=== PATIENT | male | born 1975 | race Caucasian/White ===

== ENCOUNTER 2020-05-11 06:43 | Outpatient (CLI) | payer BC, SELFPAY ==
[2020-05-11 07:35] LABS: Hematocrit 47.1 % (42.0-52.0); Hemoglobin 15.7 g/dL (14.0-18.0); Mean Corpuscular HGB Conc 33.3 g/dl (32-36); Mean Corpuscular Hemoglobin 28.6 pg (26-34); Mean Corpuscular Volume 85.8 fl (80-100); Mean Platelet Volume 11.6 fl (7.4-10.4); Platelet Count Result 231 k/mm3 (150-375); Red Blood Count 5.49 M/mm3 (4.6-6.20); Red Cell Distribution Width 12.6 % (11.5-14.5); White Blood Count 7.8 K/mm3 (4.5-10.0)
[2020-05-11 07:46] LABS: Alanine Aminotransferase 38 U/L (4-50); Albumin Level 4.3 g/dL (3.5-5.1); Alkaline Phosphatase 53 U/L (38-126); Aspartate Amino Transferase 31 U/L (17-59); Bilirubin,Total 0.7 mg/dL (0.2-1.3); Blood Urea Nitrogen 9 mg/dL (9-20); Calcium 9.4 mg/dL (8.4-10.2); Carbon Dioxide 32 mmol/L (22-30); Chloride 101 mmol/L (98-107); Cholesterol 236 mg/dL (0-200); Estimated Glomerular Filt Rate > 60; Glucose 134 mg/dL (75-110); HDL Direct 47 mg/dL; Potassium 4.7 mmol/L (3.4-5.0); Sodium 137 mmol/L (137-145); Triglycerides 147 mg/dL (<150)
[2020-05-11 07:57] LABS: LDL Cholesterol Direct 160 mg/dL
[2020-05-11 08:16] LABS: Prostate Specific Antigen 0.8 ng/mL (< OR = 4.0)
[2020-05-11 08:28] LABS: Hemoglobin A1C 6.5 % (<5.7)
[2020-05-11 09:43] LABS: Folic Acid 10.7 ng/mL (2.76->20)
== END 2020-05-11 06:44 | disposition home or self-care (01) ==
PROVIDERS: PCP Internal Medicine; Visit Provider Internal Medicine
DX: Z00.00 Encounter for general adult medical examination without abnormal findings (principal); R53.83 Other fatigue; R73.9 Hyperglycemia, unspecified; E78.00 Pure hypercholesterolemia, unspecified
CPT/HCPCS: 36415; 80053; 80061; 82607; 82746; 83036; 84153; 84443; 85027

== ENCOUNTER 2021-03-19 07:19 | Outpatient (CLI) | payer BC, SELFPAY ==
[2021-03-19 07:44] LABS: Alanine Aminotransferase 34 U/L (4-50); Albumin Level 4.1 g/dL (3.5-5.1); Alkaline Phosphatase 44 U/L (38-126); Anion Gap 1 mmol/L (8-16); Aspartate Amino Transferase 32 U/L (17-59); Bilirubin,Total 0.3 mg/dL (0.2-1.3); Blood Urea Nitrogen 17 mg/dL (9-20); Calcium 8.8 mg/dL (8.4-10.2); Carbon Dioxide 33 mmol/L (22-30); Chloride 106 mmol/L (98-107); Cholesterol 217 mg/dL (0-200); Estimated Glomerular Filt Rate > 60; Glucose 140 mg/dL (75-110); HDL Direct 42 mg/dL; Potassium 4.3 mmol/L (3.4-5.0); Sodium 140 mmol/L (137-145); Triglycerides 93 mg/dL (<150)
[2021-03-19 07:55] LABS: LDL Cholesterol Direct 142 mg/dL
== END 2021-03-19 07:20 | disposition home or self-care (01) ==
LOC: ANHLAB 07:21
PROVIDERS: PCP Internal Medicine; Visit Provider Internal Medicine
DX: R73.9 Hyperglycemia, unspecified (principal); E78.5 Hyperlipidemia, unspecified
CPT/HCPCS: 36415; 80053; 80061; 83036

== ENCOUNTER 2021-12-25 16:20 | Emergency (ER) | payer BC, SELFPAY ==
--- NOTE | ~2021-12-25 | XR_ITS ---
EXAMINATION: XR foot RT min 3V EXAM DATE: 12/25/2021 18:28 INDICATION: Puncture Injury On Planter Side, Swelling 3-4 Metatarsals . TECHNIQUE: Right foot dorsoplantar, lateral and oblique projections obtained and reviewed. There is no prior study for comparison. FINDINGS: Right metatarsal bones unremarkable. There are no bony erosions identified. There are n o acute fractures or dislocations identified. There is no subcutaneous gas. The soft tissue is unre markable. There are no radiopaque foreign bodies. IMPRESSION: 1. Unremarkable XR foot RT min 3V exam. Reviewed, dictated and finalized at location [facility]
[2021-12-25 16:26] VITALS: BP 137/98; PULSE 80; RESP 16; O2SAT 97
[2021-12-25] MEDS: TETANUS,DIPHTHERIA,AC PERTUSSIS ADULT (0.5 ML) BOOSTRIX IM (18:26)
[2021-12-25 19:28] VITALS: TEMP 36.4
--- NOTE | 2021-12-25 19:29 | ED.WOUNDLAC ---
HPI - Wound/Laceration General Chief Complaint: Wound/Laceration Stated Complaint: PUNCTURE WOUND TO R FOOT Time Seen by Provider: 12/25/21 18:33 Source: patient Mode of arrival: ambulatory Limitations: no limitations History of Present Illness HPI narrative: This is a 46 year old male that presents to the ER for puncture wound to the right foot sustained just prior to arrival. Reports he stepped on something while outside. He is unsure what. It went through his shoe and punctured his foot. Reports bleeding and pain to the area. He is not up-to-date on tetanus. Denies decreased range of motion or numbness. Related Data Home Medications Medication Instructions Recorded Confirmed omeprazole 20 mg capsule,delayed 20 mg PO DAILY 05/07/20 07/01/21 release Allergies Allergy/AdvReac Type Severity Reaction Status Date / Time No Known Allergies Allergy Verified 06/30/21 14:42 Review of Systems Review of Systems: CONSTITUTIONAL: Denies fever SKIN: Reports laceration NEUROLOGIC: Denies numbness All systems reviewed & are unremarkable except as noted in HPI and below PMFSH Past Medical History Medical History (Updated 12/25/21 @ 19:34 by Desiree Lopes PA-C) Hyperlipidemia Surgical History Surgical History History of carpal tunnel release 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 HEAD: Normocephalic, atraumatic. EYES: EOMI. EXTREMITIES: Normal range of motion. No edema or obvious deformity. 1 cm puncture wound to the plantar surface of the right foot. Normal DP pulses. Normal sensation SKIN: Warm, dry, no rash. NEURO: No focal deficits. Alert and oriented x3. PSYCH: Normal mood and affect Course Vital Signs Vital signs: Vital Signs Pulse Rate 80 12/25/21 16:26 Respiratory Rate 16 12/25/21 16:26 Blood Pressure 137/98 H 12/25/21 16:26 Pulse Oximetry 97 12/25/21 16:26 Temperature 97.5 F L 12/25/21 19:28 Pulse Rate 80 12/25/21 16:26 Respiratory Rate 16 12/25/21 16:26 Blood Pressure 137/98 H 12/25/21 16:26 Pulse Oximetry 97 12/25/21 16:26 Procedures Laceration Laceration 1: Date: 12/25/21 Site: lower extremity Side (If applicable): right Size (cm): 1 Description: linear Depth: simple, single layer Pre-repair: irrigated extensively ====== Skin Level ====== Skin layer closed with: steri strips ====== Subcutaneous Layer ====== ====== Muscle Layer ====== ====== Tendon Layer ====== MDM - Wound/Laceration MDM Narrative Medical decision making narrative: Patient presents to the emergency department after a puncture wound to the right foot. Patient was updated on tetanus. Wound was thoroughly irrigated. Right foot x-ray is without acute abnormalities. His wound was bandaged with Steri-Strips. He was educated on wound care. He is to follow-up with primary care doctor. He was given warnings to return to the ER Imaging Data Radiologist's impression: ITS Impressions Foot X-Ray 12/25/21 18:29 IMPRESSION: 1. Unremarkable XR foot RT min 3V exam. Critical Care Time Critical Care Time Critical Care Time: No Discharge Plan Discharge Clinical Impression: Puncture wo
[2021-12-25] MEDS: CEPHALEXIN 500 MG CAPSULE PO (19:53)
[2021-12-25] MEDS: levoFLOXacin 750 MG TABLET PO (19:54)
[2021-12-25] MEDS: ACETAMINOPHEN 500 MG TABLET 1000 MG PO (19:54)
--- NOTE | 2022-01-05 12:14 | PC.NURSE ---
LATE ENTRY This note is being entered to document information to the patient's record. The following information was omitted on [12/25/21], by [tamar wright]. pt wound was to right foot, not the left interventions to right foot not left
== END 2021-12-25 20:07 | disposition home or self-care (01) ==
PROVIDERS: Emergency Provider Emergency Medicine; PCP Internal Medicine
DX: S91.331A Puncture wound without foreign body, right foot, initial encounter (principal); Z23 Encounter for immunization; E78.5 Hyperlipidemia, unspecified; W26.9XXA Contact with unspecified sharp object(s), initial encounter
CPT/HCPCS: 73630; 90471; 90715; 99283; A9270

== ENCOUNTER 2022-03-08 06:57 | Outpatient (CLI) | payer BC, SELFPAY ==
[2022-03-08 07:29] LABS: Basophils Percent Auto 0.6 % (0.2-1.2); Eosinophils Absolute Auto 0.3 K/mm3 (0-0.3); Eosinophils Percent Auto 3.7 % (0-4.4); Hematocrit 44.1 % (42.0-52.0); Hemoglobin 14.8 g/dL (14.0-18.0); Immature Granulocyte Absolute 0.03 K/mm3 (0.00-0.031); Immature Granulocyte Percent A 0.4 % (0-0.5); Lymphocytes Absolute Auto 2.48 K/mm3 (0.9-3.2); Lymphocytes Percent Auto 35.1 % (18.3-44.2); Mean Corpuscular HGB Conc 33.6 g/dl (32-36); Mean Corpuscular Hemoglobin 28.2 pg (26-34); Mean Corpuscular Volume 84.2 fl (80-100); Mean Platelet Volume 11.7 fl (7.4-10.4); Monocytes Absolute Auto 0.6 K/mm3 (0.1-0.6); Monocytes Percent Auto 8.8 % (2.6-8.5); Neutrophils Absolute Auto 3.6 K/mm3 (1.3-6.7); Neutrophils Percent Auto 51.4 % (45.5-73.1); Platelet Count Result 207 k/mm3 (150-375); Red Blood Count 5.24 M/mm3 (4.6-6.20); Red Cell Distribution Width 12.7 % (11.5-14.5); White Blood Count 7.1 K/mm3 (4.5-10.0)
[2022-03-08 08:07] LABS: Alanine Aminotransferase 41 U/L (4-50); Albumin Level 4.2 g/dL (3.5-5.1); Alkaline Phosphatase 51 U/L (38-126); Anion Gap 6 mmol/L (8-16); Aspartate Amino Transferase 37 U/L (17-59); Bilirubin,Total 0.8 mg/dL (0.2-1.3); Blood Urea Nitrogen 17 mg/dL (9-20); Carbon Dioxide 29 mmol/L (22-30); Chloride 103 mmol/L (98-107); Cholesterol 251 mg/dL (0-200); Estimated Glomerular Filt Rate > 60; Glucose 166 mg/dL (65-110); HDL Direct 48 mg/dL; Potassium 4.2 mmol/L (3.4-5.0); Sodium 138 mmol/L (137-145); Triglycerides 128 mg/dL (<150)
[2022-03-08 08:18] LABS: LDL Cholesterol Direct 157 mg/dL
[2022-03-08 08:43] LABS: Prostate Specific Antigen 0.7 ng/mL (< OR = 4.0)
[2022-03-08 09:18] LABS: Folic Acid 12.1 ng/mL (2.76->20)
== END 2022-03-08 06:58 | disposition home or self-care (01) ==
LOC: ANHLAB 06:59
PROVIDERS: PCP Internal Medicine; Visit Provider Internal Medicine
DX: R53.83 Other fatigue (principal); Z12.5 Encounter for screening for malignant neoplasm of prostate; E78.5 Hyperlipidemia, unspecified; R73.9 Hyperglycemia, unspecified
CPT/HCPCS: 36415; 80053; 80061; 82607; 82746; 83036; 84153; 84443; 85025; G0103

== ENCOUNTER 2022-07-10 06:43 | Outpatient (CLI) | payer BC, SELFPAY ==
[2022-07-10 07:43] LABS: Alanine Aminotransferase 24 U/L (6-50); Albumin Level 4.2 g/dL (3.5-5.1); Alkaline Phosphatase 51 U/L (38-126); Anion Gap 8 mmol/L (8-16); Aspartate Amino Transferase 24 U/L (17-59); Bilirubin,Total 0.6 mg/dL (0.2-1.3); Blood Urea Nitrogen 9 mg/dL (9-20); Carbon Dioxide 29 mmol/L (22-30); Chloride 100 mmol/L (98-107); Cholesterol 211 mg/dL (0-200); Estimated Glomerular Filt Rate > 60; Glucose 163 mg/dL (65-110); HDL Direct 46 mg/dL; Potassium 4.4 mmol/L (3.4-5.0); Sodium 137 mmol/L (137-145); Triglycerides 150 mg/dL (<150)
[2022-07-10 07:54] LABS: LDL Cholesterol Direct 121 mg/dL
[2022-07-10 07:55] LABS: Creatinine Urine 138.2 mg/dL
[2022-07-10 07:57] LABS: MALB Creatinine Ratio 5.8 mg/g (0-30)
[2022-07-10 10:35] LABS: Hemoglobin A1C 6.6 % (<5.7)
== END 2022-07-10 06:44 | disposition home or self-care (01) ==
LOC: ANHLAB 06:44
PROVIDERS: PCP Internal Medicine; Visit Provider Internal Medicine
DX: E11.9 Type 2 diabetes mellitus without complications (principal)
CPT/HCPCS: 36415; 80053; 80061; 82043; 83036

== ENCOUNTER 2023-01-20 07:06 | Outpatient (CLI) | payer OTHER, SELFPAY ==
[2023-01-20 07:51] LABS: Basophils Absolute Auto 0.1 K/mm3 (0.0-0.1); Basophils Percent Auto 0.7 % (0.2-1.2); Eosinophils Absolute Auto 0.3 K/mm3 (0-0.3); Eosinophils Percent Auto 3.4 % (0-4.4); Hematocrit 43.6 % (42.0-52.0); Hemoglobin 14.4 g/dL (14.0-18.0); Immature Granulocyte Absolute 0.05 K/mm3 (0.00-0.031); Immature Granulocyte Percent A 0.7 % (0-0.5); Lymphocytes Absolute Auto 2.23 K/mm3 (0.9-3.2); Lymphocytes Percent Auto 30.5 % (18.3-44.2); Mean Corpuscular Volume 87.7 fl (80-100); Mean Platelet Volume 11.9 fl (7.4-10.4); Monocytes Absolute Auto 0.6 K/mm3 (0.1-0.6); Monocytes Percent Auto 7.8 % (2.6-8.5); Neutrophils Absolute Auto 4.2 K/mm3 (1.3-6.7); Neutrophils Percent Auto 56.9 % (45.5-73.1); Platelet Count Result 222 k/mm3 (150-375); Red Blood Count 4.97 M/mm3 (4.6-6.20); Red Cell Distribution Width 12.9 % (11.5-14.5); White Blood Count 7.3 K/mm3 (4.5-10.0)
[2023-01-20 07:53] LABS: Alanine Aminotransferase 47 U/L (6-50); Alkaline Phosphatase 46 U/L (38-126); Anion Gap 4 mmol/L (8-16); Aspartate Amino Transferase 29 U/L (17-59); Bilirubin,Total 0.5 mg/dL (0.2-1.3); Blood Urea Nitrogen 13 mg/dL (9-20); Calcium 8.8 mg/dL (8.4-10.2); Carbon Dioxide 29 mmol/L (22-30); Chloride 104 mmol/L (98-107); Cholesterol 220 mg/dL (0-200); Estimated Glomerular Filt Rate > 60; Glucose 165 mg/dL (65-110); HDL Direct 45 mg/dL; Potassium 4.3 mmol/L (3.4-5.0); Sodium 137 mmol/L (137-145); Triglycerides 116 mg/dL (<150)
[2023-01-20 07:55] LABS: Hemoglobin A1C 7.4 % (<5.7)
[2023-01-20 08:05] LABS: LDL Cholesterol Direct 148 mg/dL
[2023-01-20 08:30] LABS: Creatinine Urine 137.7 mg/dL
[2023-01-20 08:35] LABS: MALB Creatinine Ratio 9.2 mg/g (0-30); Microalbumin Urine Random 12.7 mg/L (0-16.7)
[2023-01-20 08:59] LABS: Folic Acid 9.9 ng/mL (2.76->20)
== END 2023-01-20 07:07 | disposition home or self-care (01) ==
LOC: ANHLAB 07:06
PROVIDERS: PCP Internal Medicine; Visit Provider Internal Medicine
DX: E78.5 Hyperlipidemia, unspecified (principal); E11.9 Type 2 diabetes mellitus without complications; R53.83 Other fatigue
CPT/HCPCS: 36415; 80053; 80061; 82043; 82607; 82746; 83036; 84443; 85025

== ENCOUNTER 2023-03-15 00:29 | Day surgery (SDC) | payer OTHER, SELFPAY ==
[2023-03-05 13:35] VITALS: BMI 36.1
--- NOTE | 2023-03-14 14:42 | PM.HPGS ---
History of Present Illness History of Present Illness Consent: Risks, benefits, and alternatives have been discussed and questions answered. Patient agrees to proceed with procedure. Chief complaint: neoplasm screening, dysphagia Narrative: Alexander Araiza Jr. is a 47 year old male Referred for colon cancer screening for investigation of dysphagia. Review of Systems Review of Systems: All systems reviewed & are unremarkable except as noted in HPI and below PMFSH Past Medical History Medical History Hyperglycemia Hyperlipidemia Obesity Surgical History Surgical History History of carpal tunnel release History of congenital diaphragmatic hernia Surgically repaired as an infant History of tonsillectomy S/P rotator cuff repair Family History Family History Mother , age 74 Family history of chronic obstructive pulmonary disease Lung cancer Father Patient's father is Heart disease Sibling Diabetes mellitus Social History Social History Smoking status: Never smoker Alcohol intake: current Drinks per week: 3 Substance use type: does not use Lack of Transportation: No Lack of Food: Never True Current Housing: I Do Not Have Housing Concerned About Future Housing: No Difficulty Paying Gas/Electric Bills: Decline to Answer Difficulty Paying for Meds: Decline to Answer Currently Unemployed: Decline to Answer Education: Decline to Answer Difficulty w/ Childcare or Family Care: Decline to Answer Living arrangements: with family Occupation/Education: occupation 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 Spiritual care concerns: No Meds Home Medications and Allergies Home Medications Medication Instructions Recorded Confirmed Type metformin 500 mg tablet,extended 500 mg PO BID #180 tabs 12/13/22 03/05/23 Rx release 24 hr ropinirole 5 mg tablet 5 mg PO .QHS #90 tabs 01/22/23 03/05/23 Rx omeprazole 20 mg capsule,delayed 20 mg PO PRN PRN Acid Reflux 03/05/23 03/05/23 History release Allergies Allergy/AdvReac Type Severity Reaction Status Date / Time No Known Allergies Allergy Verified 03/15/23 06:23 Exam Const: General: alert Orientation/consciousness: patient oriented x3 Resp: Auscultation: clear to auscultation bilaterally Cardio: Rhythm: regular rhythm GI: GI Palp: Yes Soft to palpation and No Tenderness to palpation present (GI) Neuro: General: patient oriented x3 Assessment and Plan Assessment and plan (1) Dysphagia: Code(s): R13.10 - Dysphagia, unspecified Status: Acute Assessment and Plan: EGD with possible biopsy or dilatation or cautery. (2) Colon cancer screening: Code(s): Z12.11 - Encounter for screening for malignant neoplasm of colon Status: Acute Assessment and Plan: Colonoscopy with possible biopsy or polypectomy or cautery or injection of substances.
[2023-03-15 06:24] VITALS: BP 119/75; PULSE 69; RESP 18; TEMP 36.2; O2SAT 98
[2023-03-15] MEDS: LACTATED RINGERS 1,000 ML 150 ML IV CONT (06:38)
[2023-03-15 06:39] LABS: Glucose Point of Care 141 mg/dl (65-105)
--- NOTE | 2023-03-15 06:45 | WPDANESEPPF ---
Anes - Initial Pre Proc Eval Procedure: Operation Date: 03/15/23 07:30 Proposed Procedures p Esophagogastroduodenoscopy & Screening Colonoscopy - William Uriostegui MD Date/Time: 03/15/23 06:45 Surgeon: William Uriostegui MD Pre Op Diagnosis: neoplasm screening, dysphagia Patient Data Age: 47 Gender: M Height: 1.73 m Weight: 104.1 kg Last Vital Signs Temp 36.2 C L 03/15/23 06:24 Pulse 69 03/15/23 06:24 Resp 18 03/15/23 06:24 BP 119/75 03/15/23 06:24 Pulse Ox 98 03/15/23 06:24 O2 Del Method Room Air 03/15/23 06:24 Allergies Allergy/AdvReac Type Severity Reaction Status Date / Time No Known Allergies Allergy Verified 03/15/23 06:23 Home Medications Medication Instructions Recorded Confirmed Type metformin 500 mg tablet,extended 500 mg PO BID #180 tabs 12/13/22 03/05/23 Rx release 24 hr ropinirole 5 mg tablet 5 mg PO .QHS #90 tabs 01/22/23 03/05/23 Rx omeprazole 20 mg capsule,delayed 20 mg PO PRN PRN Acid Reflux 03/05/23 03/05/23 History release Laboratory Tests 03/15/23 06:34 POC Capillary Glucose 141 H mg/dl (65-105) Patient hx anesthesia problems: none Family hx anesthesia problems: none Results Review: All pre-operative results and documents have been reviewed as part of the pre-operative evaluation. [facility] Past Medical History Medical History (Updated 03/15/23 @ 06:45 by Alexander Chapin MD) Hyperglycemia Hyperlipidemia Obesity Surgical History Surgical History History of carpal tunnel release History of congenital diaphragmatic hernia Surgically repaired as an History of tonsillectomy S/P rotator cuff repair Family History Family History Mother , age 74 Family history of chronic obstructive pulmonary disease Lung cancer Father Patient's father is Heart disease Sibling Diabetes mellitus Social History Social History Smoking status: Never smoker Alcohol intake: current Drinks per week: 3 Substance use type: does not use Lack of Transportation: No Lack of Food: Never True Current Housing: I Do Not Have Housing Concerned About Future Housing: No Difficulty Paying Gas/Electric Bills: Decline to Answer Difficulty Paying for Meds: Decline to Answer Currently Unemployed: Decline to Answer Education: Decline to Answer Difficulty w/ Childcare or Family Care: Decline to Answer Living arrangements: with family Occupation/Education: occupation 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 Informed Consent: The patient's anesthetic plan and its attendant risks and benefits were discussed with the patient/family/POA. Questions were solicited and answers provided to the satisfaction of the patient/family/POA.
--- NOTE | 2023-03-15 07:44 | SUR.OPER ---
EGD START- 722. EGD END-729. COLONOSCOPY START- 735. COLONOSCOPY END-745
[2023-03-15 07:49] VITALS: BP 124/98; PULSE 81; RESP 15; O2SAT 94
[2023-03-15 07:59] VITALS: BP 119/62; PULSE 77; RESP 13; O2SAT 95
[2023-03-15 08:09] VITALS: BP 111/63; PULSE 74; RESP 17; O2SAT 98
== END 2023-03-15 08:20 | disposition home or self-care (01) ==
PROVIDERS: PCP Internal Medicine; Visit Provider Internal Medicine Gastroenterology
PROC: 0DJ08ZZ Inspection of Upper Intestinal Tract, Via Natural or Artificial Opening Endoscopic (ICD-10-PCS; CPT 43235; principal; 2023-03-15 07:30)
DX: Z12.11 Encounter for screening for malignant neoplasm of colon (principal); D12.5 Benign neoplasm of sigmoid colon; K22.2 Esophageal obstruction; K31.7 Polyp of stomach and duodenum; K20.0 Eosinophilic esophagitis; Z79.84 Long term (current) use of oral hypoglycemic drugs; E78.5 Hyperlipidemia, unspecified; E66.9 Obesity, unspecified; Z68.34 Body mass index [BMI] 34.0-34.9, adult
CPT/HCPCS: 45385; 43249; 43239; 82948; 87081; 88305; C1726; J2704; J7120

== ENCOUNTER 2023-08-18 07:06 | Outpatient (CLI) | payer BC, SELFPAY ==
[2023-08-18 07:42] LABS: Basophils Percent Auto 0.6 % (0.2-1.2); Eosinophils Absolute Auto 0.1 K/mm3 (0-0.3); Eosinophils Percent Auto 1.8 % (0-4.4); Hematocrit 44.9 % (42.0-52.0); Hemoglobin 14.6 g/dL (14.0-18.0); Immature Granulocyte Absolute 0.02 K/mm3 (0.00-0.031); Immature Granulocyte Percent A 0.3 % (0-0.5); Lymphocytes Percent Auto 35.2 % (18.3-44.2); Mean Corpuscular HGB Conc 32.5 g/dl (32-36); Mean Corpuscular Hemoglobin 28.2 pg (26-34); Mean Corpuscular Volume 86.7 fl (80-100); Mean Platelet Volume 11.6 fl (7.4-10.4); Monocytes Absolute Auto 0.5 K/mm3 (0.1-0.6); Monocytes Percent Auto 6.9 % (2.6-8.5); Neutrophils Absolute Auto 3.6 K/mm3 (1.3-6.7); Neutrophils Percent Auto 55.2 % (45.5-73.1); Platelet Count Result 213 k/mm3 (150-375); Red Blood Count 5.18 M/mm3 (4.6-6.20); Red Cell Distribution Width 12.6 % (11.5-14.5); White Blood Count 6.5 K/mm3 (4.5-10.0)
[2023-08-18 07:53] LABS: Alanine Aminotransferase 37 U/L (6-50); Alkaline Phosphatase 48 U/L (38-126); Anion Gap 5 mmol/L (8-16); Aspartate Amino Transferase 29 U/L (17-59); Bilirubin,Total 0.6 mg/dL (0.2-1.3); Blood Urea Nitrogen 13 mg/dL (9-20); Calcium 8.8 mg/dL (8.4-10.2); Carbon Dioxide 28 mmol/L (22-30); Chloride 104 mmol/L (98-107); Cholesterol 219 mg/dL (0-200); Estimated Glomerular Filt Rate > 60; Glucose 148 mg/dL (65-110); HDL Direct 48 mg/dL; Potassium 4.2 mmol/L (3.4-5.0); Sodium 137 mmol/L (137-145); Triglycerides 90 mg/dL (<150)
[2023-08-18 08:04] LABS: LDL Cholesterol Direct 132 mg/dL
[2023-08-18 08:22] LABS: Thyroid Stimulating Hormone 0.996 uIU/mL (0.465-4.680)
[2023-08-18 08:26] LABS: Creatinine Urine 172.8 mg/dL
[2023-08-18 08:28] LABS: MALB Creatinine Ratio 8.7 mg/g (0-30)
[2023-08-20 16:18] LABS: Prostate Specific Antigen 0.8 ng/mL (< OR = 4.0)
== END 2023-08-18 07:07 | disposition home or self-care (01) ==
PROVIDERS: PCP Internal Medicine; Visit Provider Internal Medicine
DX: Z00.00 Encounter for general adult medical examination without abnormal findings (principal); E11.9 Type 2 diabetes mellitus without complications
CPT/HCPCS: 36415; 80053; 80061; 82043; 83036; 84153; 84443; 85025; G0103

== ENCOUNTER 2024-05-10 07:29 | Outpatient (CLI) | payer BC, SELFPAY ==
[2024-05-10 08:05] LABS: Alanine Aminotransferase 27 U/L (6-50); Albumin Level 4.2 g/dL (3.5-5.1); Alkaline Phosphatase 47 U/L (38-126); Anion Gap 8 mmol/L (4-12); Aspartate Amino Transferase 26 U/L (17-59); Bilirubin,Total 0.6 mg/dL (0.2-1.3); Blood Urea Nitrogen 13 mg/dL (9-20); Carbon Dioxide 25 mmol/L (22-30); Chloride 104 mmol/L (98-107); Cholesterol 204 mg/dL (0-200); Estimated Glomerular Filt Rate > 60; Glucose 180 mg/dL (65-110); HDL Direct 49 mg/dL; Potassium 4.2 mmol/L (3.4-5.0); Sodium 137 mmol/L (137-145); Triglycerides 96 mg/dL (<150)
[2024-05-10 08:21] LABS: LDL Cholesterol Direct 136 mg/dL
[2024-05-10 08:42] LABS: Basophils Absolute Auto 0.1 K/mm3 (0.0-0.1); Basophils Percent Auto 0.7 % (0.2-1.2); Eosinophils Absolute Auto 0.2 K/mm3 (0-0.3); Eosinophils Percent Auto 2.6 % (0-4.4); Hematocrit 43.7 % (42.0-52.0); Hemoglobin 14.5 g/dL (14.0-18.0); Immature Granulocyte Absolute 0.02 K/mm3 (0.00-0.031); Immature Granulocyte Percent A 0.3 % (0-0.5); Lymphocytes Percent Auto 32.3 % (18.3-44.2); Mean Corpuscular HGB Conc 33.2 g/dl (32-36); Mean Corpuscular Hemoglobin 28.2 pg (26-34); Mean Corpuscular Volume 84.9 fl (80-100); Mean Platelet Volume 11.9 fl (7.4-10.4); Monocytes Absolute Auto 0.6 K/mm3 (0.1-0.6); Monocytes Percent Auto 8.5 % (2.6-8.5); Neutrophils Absolute Auto 3.8 K/mm3 (1.3-6.7); Neutrophils Percent Auto 55.6 % (45.5-73.1); Platelet Count Result 223 k/mm3 (150-375); Red Blood Count 5.15 M/mm3 (4.6-6.20); Red Cell Distribution Width 12.7 % (11.5-14.5); White Blood Count 6.8 K/mm3 (4.5-10.0)
[2024-05-10 09:39] LABS: Hemoglobin A1C 7.4 % (<5.7)
== END 2024-05-10 07:30 | disposition home or self-care (01) ==
PROVIDERS: PCP Internal Medicine; Visit Provider Internal Medicine
DX: E11.9 Type 2 diabetes mellitus without complications (principal); E78.5 Hyperlipidemia, unspecified; R53.83 Other fatigue
CPT/HCPCS: 36415; 80053; 80061; 83036; 84443; 85025

== ENCOUNTER 2024-11-25 06:40 | Outpatient (CLI) | payer BC, SELFPAY ==
[2024-11-25 07:10] LABS: Alanine Aminotransferase 24 U/L (6-50); Albumin Level 4.1 g/dL (3.5-5.1); Alkaline Phosphatase 49 U/L (38-126); Anion Gap 5 mmol/L (4-12); Aspartate Amino Transferase 22 U/L (17-59); Bilirubin,Total 0.7 mg/dL (0.2-1.3); Blood Urea Nitrogen 14 mg/dL (9-20); Calcium 8.9 mg/dL (8.4-10.2); Carbon Dioxide 29 mmol/L (22-30); Chloride 104 mmol/L (98-107); Cholesterol 226 mg/dL (0-200); Estimated Glomerular Filt Rate > 60; Glucose 158 mg/dL (65-110); HDL Direct 49 mg/dL; Potassium 4.3 mmol/L (3.4-5.0); Sodium 138 mmol/L (137-145); Triglycerides 112 mg/dL (<150)
[2024-11-25 07:21] LABS: LDL Cholesterol Direct 144 mg/dL
[2024-11-25 08:07] LABS: Hemoglobin A1C 7.5 % (<5.7)
--- OUTSIDE RECORDS SUMMARY | 2024-12-01 16:10 | XMS_ITS | Encounter Summary ---
Author Organization [facility] Address [address] [place] [address] Care Team Providers Care Slide Machine Tender Name Role Phone Steven Rodriguez DO Primary Care Provider [phone] Reason for Visit * Reason Comments Sore Throat Encounter Details Date Type Department Care Team (Late st Contact Info) Description 12/01/2016 10:20 AM RECREATION INSTRUCTOR Office Visit [facility] [address] [place] [address] Provider, Fred Exp Nameoki Acute pharyngitis, unspecified etiology (Primary Dx) Social History Tobacco Use Types Packs/Day Years Used Date Smoking Tobacco: Never Assessed Sex and Gender Information Value Date Recorded Sex Assigned at Not on file Gender Identity Not on file Sexual Orientation Not on file documented as of this encounter Last Filed Vital Signs Vital Sign Reading Time Taken Comments Blood Pressure 126/84 12/01/2016 10:35 AM RECREATION INSTRUCTOR Pulse 68 12/01/2016 10:35 AM RECREATION INSTRUCTOR Temperature 36.8 ??C (98.3 ??F) 12/01/2016 10:[address] Respiratory Rate 16 12/01/2016 10:35 AM RECREATION INSTRUCTOR Oxygen Saturation - - Inhaled Oxygen Concentration - - Weight 99.8 kg (220 lb) 12/01/2016 10:35 AM RECREATION INSTRUCTOR Height 172.7 cm (5' 8 ) 12/01/2016 10:35 AM RECREATION INSTRUCTOR Body Mass Index 33.45 12/01/2016 10:35 AM RECREATION INSTRUCTOR documented in this encounter Patient Instructions * Patient Instructions* Valentina Lock, ENTRY ANALYST-TYPESETTING MACHINE OPERATOR/TENDER - 12/01/2016 10:40 AM RECREATION INSTRUCTOR Images from the original note were not included. Declines throat culture Warm salt water gargles or gargle with chloraseptic spray Increase fluid intake Tylenol or Motrin as needed Can use Claritin or Zyrtec as needed for nasal drainage If no improvement in 48-72 hours follow up with PCP or return to clinic Pharyngitis WHAT YOU NEED TO KNOW: Pharyngitis is swelling of the inside of your throat, called the pharynx. It may cause a sore throat or pain when you swallow. Pharyngitis is often caused by a cold or flu virus. It may also be caused by bacteria such as strep. DISCHARGE INSTRUCTIONS: Return to the emergency department if: ?? You have trouble breathing or swallowing because your throat is swollen or sore. ?? You are drooling because it hurts too much to swallow. ?? You have a painful lump in your throat that does not go away after 5 days. ?? Your fever is higher than 102?F (39?C) or lasts longer than 3 days. This may be a sign of a moreserious infection. ?? You have confusion. ?? You have blood in your throat or ear. Contact your healthcare provider if: ?? Your throat pain gets worse. ?? Your symptoms do not improve after 5 days. ?? You have questions or concerns about your condition or care. Medicines: Your sore throat should feel better within 3 to 5 days without treatment if it is causedby a virus. You may need the following: ?? NSAIDs , such as ibuprofen, help decrease swelling, pain, and fever. NSAIDs can cause stomach bleeding or kidney problems in certain people. If you take blood thinner medicine, always ask your healthcare provider if NSAIDs are safe for you. Always read the medicine label and follow directions. ?? Acetaminophen decreases pain and fever. It is available without a doctor's order. Ask how much to take and how often to take it. Follow directions. Acetaminophen can cause liver damage if not taken correctly. ?? Take your medicine as directed. Call your healthcare provider if you think your medicine is not helping or if you have side effects. Tell him if you are allergic to any medicine. Keep a list of the medicines, vitamins, and herbs you take. Include the amounts, and when and why you take them. Bring the list or the pill bottles to follow-up visits. Carry your medicine list with you in case of an emergency. Follow up with your healthcare provider as directed: Write down your questions so you remember to ask them during your visits. Self-care: ?? Gargle salt water. Mix ?? teaspoon salt in a glass of warm water and gargle. This may help reduce swelling in your throat. ?? Drink more liquids. Cold or warm drinks may help soothe your sore throat. Drinking liquids can also help prevent dehydration. ?? Humidify your room. Use a cool-steam humidifier to help moisten the air in your room and calm your cough. ?? Soothe your throat. Cough drops, ice, soft foods, or popsicles may help soothe your throat. ?? Rest your throat as much as possible. Try not to use your voice. This may irritate your throat and worsen your symptoms. ?? Prevent the spread of germs. Pharyngitis spreads easily from one person to another. Wash your hands with soap and warm water. Do not share food or drinks. This will help prevent the spread of germs. ?? 2016 [employer]. Information is for End User's use only and may not be sold, redistributed or otherwise used for commercial purposes. All illustrations and images included in CareNotes?? are the copyrighted property of [employer], [employer] or [employer]. The above information is an prosthetic aides teacher only. It is not intended as medical advice for individual conditions or treatments. Talk to your doctor, nurse or pharmacist before following any medical regimen to see if it is safe and effective for you. EATION INSTRUCTOR documented in this encounter Progress Notes * Valentina Lock APRN-CNP - 12/01/2016 10:31 AM CST [facility] Chief Complaint Patient presents with ??? Sore Throat SUBJECTIVE: General The history is provided by the patient. This is a new problem. The current episode started yesterday. The problem occurs constantly. The problem has been gradually worsening. The pain is at a severity of 0/10. The pain is mild. Pertinent negatives include no headaches. The symptoms are aggravated by swallowing. No past medical history on file. No current outpatient prescriptions on file prior to visit. No current facility-administered medications on file prior to visit. No past surgical history on file. History Social History ??? Marital status: Spouse name: N/A ??? Number of children: N/A ??? Years of education: N/A Occupational History ??? Not on file. Social History Main Topics ??? Smoking status: Not on file ??? Smokeless tobacco: Not on file ??? Alcohol use: Not on file ??? Drug use: Not on file ??? Sexual activity: Not on file Other Topics Concern ??? Not on file Social History Narrative No family history on file. No current outpatient prescriptions on file. No current facility-administered medications for this visit. Allergies not on file REVIEW OF SYSTEMS: Review of Systems Constitutional: Negative for chills and fever. HENT: Positive for sore throat. Negative for congestion, ear discharge and ear pain. Runny nose Respiratory: Positive for cough. Gastrointestinal: Negative for diarrhea, nausea and vomiting. Neurological: Negative for headaches. OBJECTIVE: General appearance: alert, well appearing, and in no distress. There were no vitals taken for this visit. Physical Exam Constitutional: He is oriented to person, place, and time and well-developed, well-nourished, and in no distress. HENT: Head: Normocephalic and atraumatic. Mouth/Throat: Oropharynx is clear and moist. Erythema posterior pharynx Neck: Normal range of motion. Neck supple. Cardiovascular: Normal rate and regular rhythm. Pulmonary/Chest: Effort normal and breath sounds normal. Neurological: He is alert and oriented to person, place, and time. Vitals reviewed. ASSESSMENT: No results found for this visit on 12/01/16. No diagnosis found. PLAN: Warm salt water gargles or gargle with chloraseptic spray Increase fluid intake Tylenol or Motrin as needed Can use Claritin or Zyrtec as needed for nasal drainage If no improvement in 48-72 hours follow up with PCP or return to clinic EATION INSTRUCTOR documented in this encounter Plan of Treatment Not on file documented as of this encounter Procedures Procedure Name Priority Date/Time Associated Diagnosis Comments STREP A SCREEN - POINT OF CARE (AMB) STL Routine 12/01/2016 10:40 AM RECREATION INSTRUCTOR Acute pharyngitis, unspecified etiology documented in this encounter Results * STREP A SCREEN (12/01/2016 10:40 AM RECREATION INSTRUCTOR) Strep A Rapid POCT Negative Negative Strep A Internal Control Present Lot # [id number] Expiration Date [id number] Throat ENTIRE THROAT (SURFACE REGION OF NECK) / Unknown 12/01/2016 10:40 AM RECREATION INSTRUCTOR Valentina Lock ENTRY ANALYST-TYPESETTING MACHINE OPERATOR/TENDER LAB - POINT O F CARE ORDERABLES documented in this encounter Visit Diagnoses Diagnosis Acute pharyngitis, unspecified etiology- Primary documented in this encounter Care Teams Slide Machine Tender Relationship Specialty Start Date End Date Steven Rodriguez DO [address] [place] [address] PCP - General Internal Medicine 12/01/16 documented as of this encounter
--- OUTSIDE RECORDS SUMMARY | 2024-12-01 16:10 | XMS_ITS | Clinical Summary ---
[facility] Address [address] Attn: Epic Prelude ADT JOSH SONG [address] Care Team Providers Care Research Assistant Professor Name Role Phone Unavailable Primary Care Provider Unavailabl e Social History Tobacco Use Types Packs/Day Years Used Date Smoking Tobacco: Never Assessed Sex and Gender Information Value Date Recorded Sex Assigned at Not on file Gender Identity Not on file Sexual Orientation Not on file Plan of Treatment Health Maintenance Due Date Last Done Comments DTAP/TDAP/TD VACCINES (1 - Tdap) 1996 HEPATITIS B VACCINES (1 of 3 - 19+ 3-dose series) 1996 COLORECTAL SCREENING 2022 Colorectal Cancer Screening 2022 FIT-DNA Q 3 years 2022 FIT/FOBT Q 1 year 2022 Flex Sig/CT Colonography Q 5 years 2022 INFLUENZA VACCINE (#1) 2024 PNEUMOCOCCAL VACCINE 0-64 YEARS Aged Out No longer eligible based on patient's age to complete this topic
--- OUTSIDE RECORDS SUMMARY | 2024-12-01 16:10 | XMS_ITS | Encounter Summary ---
Author Organization [facility] Address [address] [place] [address] Care Team Providers Care Test Department Helper Name Role Phone Steven Rodriguez Juliana ELLER Primary Care Provider [phone] Reason for Visit * Reason Comments Imm Inj Encounter Details Date Type Department Care Team (Late st Contact Info) Description 09/14/2020 4:40 PM CDT Office Visit [facility] [address] [place] [address] Provider, Fred Exp [address] Need for vaccination (Primary Dx) Social History Tobacco Use Types Packs/Day Years Used Date Smoking Tobacco: Never Smokeless Tobacco: Never Sex and Gender Information Value Date Recorded Sex Assigned at Not on file Gender Identity Not on file Sexual Orientation Not on file COVID-19 Exposure Response Date Recorded In the last month, have you been in contact with someone who was confirmed or suspected to have Coronavirus / COVID-19? No / Unsure 09/14/2020 4:19 PM CDT documented as of this encounter Progress Notes * Rosie Carlisle, STORES LABORER-CHAR PULLER - 09/14/2020 4:35 PM CDT Patient here for Influenza vaccine today. Allergies reviewed. Vaccine consent signed, reviewed withpatient, and scanned into record. Education materials provided to patient. Patient tolerated well. Rosie Carlisle, TAMIE, TUNGSTEN REFINER-BC It is flu (prevention) season. 1) Influenza (Flu) Facts: ?? The flu is a contagious respiratory illness caused by influenza viruses. It can cause mild to severe illness, and at times can lead to hospitalizations and . ?? Annual vaccination is important because influenza is unpredictable and flu viruses are constantly changing. Even if you???ve been vaccinated before, the flu vaccine from a previous season may not protect against current flu viruses. ?? Flu vaccines CANNOT cause the flu. The viruses in flu vaccines are either killed (as in the flu shot ) or weakened (the nasal-spray vaccine). The flu vaccines work by priming your body's defensesin case you are exposed to an actual flu virus. ?? Flu vaccines are safe. Serious problems from the flu vaccine are very rare. The most common sideeffect that a person is likely to experience is soreness where the injection was given. This is generally mild and usually goes away after a day or two. 2) Who should get vaccinated this season?: Everyone 6 months and older should get a flu vaccine each year. This recommendation has been in place since January 12, 2010 when CDC???s Advisory Committee on Immunization Practices (ACIP) voted for ???universal?? flu vaccination in the [place] to expand pr otection against the flu to more people. While everyone should get a flu vaccine each flu season, it???s especially important that certain people get vaccinated either because they are at high risk of having serious flu-related complications or because they live with or care for people at high riskfor developing flu- related complications. ??? women ??? Children younger than 5, but especially children younger than 2 years old ??? People 50 years of age and older ??? People of any age with certain chronic medical conditions ??? People who live in nursing homes and other long-term care facilities ??? People who live with or care for those at high risk for complications from flu, including: o Health care workers (physicians, nurses, other workers in hospital and outpatient care settings, and medical emergency response workers) o Household contacts of persons at high risk for complications from the flu Household contacts and out of home caregivers of children less than 6 months of age (these childrenare too young to be vaccinated) documented in this encounter Plan of Treatment Not on file documented as of this encounter Visit Diagnoses Diagnosis Need for vaccination- Primary Need for prophylactic vaccination and inoculation against unspecified single disease documented in this encounter Care Teams Test Department Helper Relationship Specialty Start Date End Date Steven Rodriguez DO [address] [place] [address] PCP - General Internal Medicine 12/01/16 documented as of this encounter
--- OUTSIDE RECORDS SUMMARY | 2024-12-01 16:10 | XMS_ITS | Clinical Summary ---
Author Organization [facility] Address [address] [place] [address] Care Team Providers Care Geriatrician Name Role Phone Steven Rodriguez Primary Care Provider [phone] Source Comments [facility],non-owned Affiliates and Associated Physician Practices is amultiple site organization consisting of ambulatory clinics and hospital sitesin [place], [place], [place] and [place]. This disclosure is being madepursuant to the Care Everywhere program and may not contain all information available regarding this patient. Last updated 18.[facility] Allergies No known active allergies Medications * Be aware that medications may not be up to date on this document. Alwaysverify current medications with the patient. Medication Sig Dispensed Refills Start Date End Date Status rOPINIRole (REQUIP) 0.25 MG tablet Take 0.25 mg by mouth 3 times daily Active Immunizations Name Administration Dates Next Due INFLUENZA VACCINE, QUADR. (F LUZONE; FLULAVAL; FLUARIX; AFLURIA QUADRIVALENT; 6MO+), 0.5 ML (IIV4) 09/14/2020 Social History Tobacco Use Types Packs/Day Years Used Date Smoking Tobacco: Never Smokeless Tobacco: Never Sex and Gender Information Value Date Recorded Sex Assigned at Not on file Gender Identity Not on file Sexual Orientation Not on file Last Filed Vital Signs Vital Sign Reading Time Taken Comments Blood Pressure 130/82 10/10/2019 11:58 AM CHEMICAL DEPENDENCY ATTENDANT Pulse 81 10/10/2019 11:58 AM CHEMICAL DEPENDENCY ATTENDANT Temperature 36.8 ??C (98.2 ??F) 10/10/2019 11:[address] Respiratory Rate 16 10/10/2019 11:58 AM CHEMICAL DEPENDENCY ATTENDANT Oxygen Saturation 97% 10/10/2019 11:58 AM CHEMICAL DEPENDENCY ATTENDANT Inhaled Oxygen Concentration - - Weight 102.1 kg (225 lb) 10/10/2019 11:58 AM CHEMICAL DEPENDENCY ATTENDANT Height 172.7 cm (5' 8 ) 10/10/2019 11:58 AM CHEMICAL DEPENDENCY ATTENDANT Body Mass Index 34.21 10/10/2019 11:58 AM CHEMICAL DEPENDENCY ATTENDANT Plan of Treatment Health Maintenance Due Date Last Done Comments COLOGUARD (AGES 45-75) - COL ON CA SCREENING 1977 COLON MONITORING 1977 COLONOSCOPY - COLON CA SCREENING 1977 CT COLONOGRAPHY - COLON CA SCREENING 1977 Colorectal Cancer Screening 1977 FIT - COLON CA SCREENING 1977 FLEX SIG - COLON CA SCREENING 1977 LIPID TESTING 1977 HIV SCREENING 1992 HEPATITIS C SCREENING 07/03/1995 DTAP/TDAP/TD VACCINES (1 - Tdap) 1996 HEPATITIS B VACCINE (1 of 3 - 19+ 3-dose series) 1996 SCREENING FOR DIABETES 10/10/2019 COVID-19 VACCINE (1 - 2023-2 5 season) 2024 INFLUENZA VACCINE (#1) 2024 09/14/2020 DEPRESSION SCREENING 11/19/2024 ZOSTER VACCINE (1 of 2) 2027 HIB VACCINE Aged Out No longer eligi ble based on patient's age to complete this topic HPV VACCINE Aged Out No longer eligi ble based on patient's age to complete this topic MENINGOCOCCAL (Group B) VACCINE Aged Out No longer eligible based on patient's age to complete this topic MENINGOCOCCAL VACCINE Aged Out No alexa juan carlos eligible based on patient's age to complete this topic PNEUMOCOCCAL VACCINE Aged Out No long er eligible based on patient's age to complete this topic Care Teams Geriatrician Relationship Specialty Start Date End Date Steven Rodriguez DO [address] [place] [address] PCP - General Internal Medicine 12/01/16
--- OUTSIDE RECORDS SUMMARY | 2024-12-01 16:10 | XMS_ITS | Patient Health Summary ---
Author Organization [facility] Address [address] [place] [address] Care Team Providers Care Children'S Attendant Name Role Phone Steven Rodriguez Primary Care Provider [phone] Note from [facility],non-owned Affiliates and Associated Physician Practices is amultiple site organization consisting of ambulatory clinics and hospital sitesin [place], [place], [place] and [place]. This disclosure is being madepursuant to the Care Everywhere program and may not contain all information available regarding this patient. Last updated 18.[facility] Allergies No known active allergies Medications * Be aware that medications may not be up to date on this document. Alwaysverify current medications with the patient. * rOPINIRole (REQUIP) 0.25 MG tablet Take 0.25 mg by mouth 3 times daily Immunizations * INFLUENZA VACCINE, QUADR. (FLUZONE; FLULAVAL; FLUARIX; AFLURIA QUADRIVALENT; 6MO+), 0.5 ML (IIV4)(Given 09/14/2020) Social History Tobacco Use Types Packs/Day Years Used Date Smoking Tobacco: Never Smokeless Tobacco: Never Sex and Gender Information Value Date Recorded Sex Assigned at Not on file Gender Identity Not on file Sexual Orientation Not on file Last Filed Vital Signs Vital Sign Reading Time Taken Comments Blood Pressure 130/82 10/10/2019 11:58 AM HEALTH NAVIGATOR Pulse 81 10/10/2019 11:58 AM HEALTH NAVIGATOR Temperature 36.8 ??C (98.2 ??F) 10/10/2019 11:[address] Respiratory Rate 16 10/10/2019 11:58 AM HEALTH NAVIGATOR Oxygen Saturation 97% 10/10/2019 11:58 AM HEALTH NAVIGATOR Inhaled Oxygen Concentration - - Weight 102.1 kg (225 lb) 10/10/2019 11:58 AM HEALTH NAVIGATOR Height 172.7 cm (5' 8 ) 10/10/2019 11:58 AM HEALTH NAVIGATOR Body Mass Index 34.21 10/10/2019 11:58 AM HEALTH NAVIGATOR Procedures * CULTURE RESPIRATORY UPPER(Performed 10/10/2019) Performed for Acute pharyngitis, unspecified etiology * STREP A SCREEN - POINT OF CARE (AMB) STL(Performed 10/10/2019) Performed for Acute pharyngitis, unspecified etiology * STREP A SCREEN - POINT OF CARE (AMB) STL(Performed 12/01/2016) Performed for Acute pharyngitis, unspecified etiology Results * [facility] Throat Culture (10/10/2019 12:13 PM HEALTH NAVIGATOR) Pathologist [facility] Upper Respiratory Culture Final report [facility] ACCOUNT BILL Result 1 [facility] ACCOUNT BILL Comment:Routine respiratory shabbir Microbiology ENTIRE THROAT (SURFACE REGION OF NECK) / Unknown 10/10/2019 12:13 PM HEALTH NAVIGATOR 10/10/2019 Narrative Resulting Agency Comment Lab Testing performed at: [facility] [address] ??[facility] [id number] [facility] - UT CROBIOLOGY ORDERABLES Performing Organization Address City/State/[facility] Co de Phone Number [facility] ACCOUNT BILL [address] [place] [address] * STREP A SCREEN (10/10/2019) Only the most recent of2 resultswithin the time period is included. Pathologist [facility] Strep A Rapid POCT Negative Negative Strep A Internal Control Present Lot # [id number] Expiration Date 02/16/2021 Throat ENTIRE THROAT (SURFACE REGION OF NECK) / Unknown 10/10/2019 [facility] THAPAMAT[facility]IS[facility] - PO INT OF CARE ORDERABLES Care Teams Children'S Attendant Relationship Specialty Start Date End Date Steven Rodriguez DO [address] [place] [address] PCP - General Internal Medicine 12/01/16
--- OUTSIDE RECORDS SUMMARY | 2024-12-01 16:10 | XMS_ITS | Encounter Summary ---
Author Organization [facility] Address [address] [place] [address] Care Team Providers Care Tire Fabricator Name Role Phone Steven Rodriguez DO Primary Care Provider [phone] Encounter Details Date Type Department Care Team (Latest Contact Info) Description 09/14/2020 Travel Social History Tobacco Use Types Packs/Day Years [...] PM CDT documented as of this encounter Plan of Treatment Not on file documented as of this encounter Visit Diagnoses Not on filedocumented in this encounter Care Teams Tire Fabricator Relationship Specialty Start Date End Date Steven Rodriguez DO [address] [place] [address] PCP - General Internal Medicine 12/01/16 documented as of this encounter
--- OUTSIDE RECORDS SUMMARY | 2024-12-01 16:10 | XMS_ITS | Referral Summary ---
Author Organization [facility] Address [address] [address] Care Team Providers Care Speech Communication Instructor Name Role Phone Steven Rodriguez Primary Care Provider [phone] [phone] Source Comments [facility] [employer],non-owned Affiliates and Associated Physician Practices is amultiple site organization consisting of ambulatory clinics and hospital sitesin [place], [place], [place] and [place]. This disclosure is being madepursuant to the Care Everywhere program and may not contain all information available regarding this patient. Last updated 18.[facility] [employer] Allergies No known active allergies Medications * [...] Comments Blood Pressure 130/82 10/10/2019 11:58 AM FINAL INSPECTOR PAPER Pulse 81 10/10/2019 11:58 AM FINAL INSPECTOR PAPER Temperature 36.8 ??C (98.2 ??F) 10/10/2019 11:[address] Respiratory Rate 16 10/10/2019 11:58 AM FINAL INSPECTOR PAPER Oxygen Saturation 97% 10/10/2019 11:58 AM FINAL INSPECTOR PAPER Inhaled Oxygen Concentration - - Weight 102.1 kg (225 lb) 10/10/2019 11:58 AM FINAL INSPECTOR PAPER Height 172.7 cm (5' 8 ) 10/10/2019 11:58 AM FINAL INSPECTOR PAPER Body Mass Index 34.21 10/10/2019 11:58 AM FINAL INSPECTOR PAPER Plan of Treatment Not on file Care Teams Speech Communication Instructor Relationship Specialty Start Date End Date Steven Rodriguez DO [address] [place] [address] PCP - General Internal Medicine 12/01/16
--- OUTSIDE RECORDS SUMMARY | 2024-12-01 16:10 | XMS_ITS | Encounter Summary ---
Author Organization [facility] Address [address] [place] [address] Care Team Providers Care Bead Cutter Name Role Phone Steven Rodriguez Juliana ELLER Primary Care Provider [phone] Reason for Visit * Reason Comments Sore Throat Encounter Details Date Type Department Care Team (Late st Contact Info) Description 10/10/2019 12:00 PM STORE PRODUCT DEMONSTRATOR Office Visit [facility] [address] [place] [id number] Provider, Fred Exp Nameoki Acute pharyngitis, unspecified [...] Comments Blood Pressure 130/82 10/10/2019 11:58 AM STORE PRODUCT DEMONSTRATOR Pulse 81 10/10/2019 11:58 AM STORE PRODUCT DEMONSTRATOR Temperature 36.8 ??C (98.2 ??F) 10/10/2019 11:[address] Respiratory Rate 16 10/10/2019 11:58 AM STORE PRODUCT DEMONSTRATOR Oxygen Saturation 97% 10/10/2019 11:58 AM STORE PRODUCT DEMONSTRATOR Inhaled Oxygen Concentration - - Weight 102.1 kg (225 lb) 10/10/2019 11:58 AM STORE PRODUCT DEMONSTRATOR Height 172.7 cm (5' 8 ) 10/10/2019 11:58 AM STORE PRODUCT DEMONSTRATOR Body Mass Index 34.21 10/10/2019 11:58 AM STORE PRODUCT DEMONSTRATOR documented in this encounter Patient Instructions * Patient Instructions* Diana Chaudhari APRN-STEEL POURER HELPER - 10/10/2019 12:12 PM STORE PRODUCT DEMONSTRATOR Patient Education Pharyngitis CLINICAL SUPPORT SPECIALIST: Pharyngitis , or sore throat, is inflammation of the tissues and structures in your pharynx (throat). Pharyngitis is most often caused by bacteria. It may also be caused by a cold or flu virus. Othercauses include smoking, allergies, or acid reflux. Signs and symptoms that may occur with pharyngitis: ?? Sore throat or pain when you swallow ?? Fever, chills, and body aches ?? Hoarse or raspy voice ?? Cough, runny or stuffy nose, itchy or watery eyes ?? Headache ?? Upset stomach and loss of appetite ?? Mild neck stiffness ?? Swollen glands that feel like hard lumps when you touch your neck ?? White and yellow pus-filled blisters in the back of your throat Call 911 for any of the following: ?? You have trouble breathing or swallowing because your throat is swollen or sore. Seek care immediately if: ?? You are drooling because it hurts too much to swallow. ?? Your fever is higher than 102?F (39?C) or lasts longer than 3 days. ?? You are confused. ?? You taste blood in your throat. Contact your healthcare provider if: ?? Your throat pain gets worse. ?? You have a painful lump in your throat that does not go away after 5 days. ?? Your symptoms do not improve after 5 days. ?? You have questions or concerns about your condition or care. Treatment for pharyngitis: Viral pharyngitis will go away on its own without treatment. Your sore throat should start to feel better in 3 to 5 days for both viral and bacterial infections. You may need any of the following: ?? Antibiotics treat a bacterial infection. ?? NSAIDs , such as ibuprofen, help [...] cause liver damage if not taken correctly. Manage your symptoms: ?? Gargle salt water. Mix ?? teaspoon salt in an 8 ounce glass of warm water and gargle. This may help decrease swelling in your throat. ?? Drink liquids as directed. You may need to drink more liquids than usual. Liquids may help soothe your throat and prevent dehydration. Ask how much liquid to drink each day and which liquids are best for you. ?? Use a cool-steam humidifier to help moisten the air in your room and calm your cough. ?? Soothe your throat with cough drops, ice, soft foods, or popsicles. Prevent the spread of pharyngitis: Cover your mouth and nose when you cough or sneeze. Do not sharefood or drinks. Wash your hands often. Use soap and water. If soap and water are unavailable, use an alcohol based hand supervisor poultry farm. Follow up with your healthcare provider as directed: Write down your questions so you remember to ask them during your visits. ?? Copyright [employer] 2019 Information is for End User's use only and may not be sold, redistributed or otherwise used for commercial purposes. All illustrations and images included in CareNotes?? are the copyrighted property of [employer]. or [employer] The above information is an educational fundraising director only. It is not intended as medical advice for individual conditions or treatments. Talk to your doctor, nurse or pharmacist before following any medical regimen to see if it is safe and effective for you. E PRODUCT DEMONSTRATOR documented in this encounter Progress Notes * Daina Chaudhari APRN-CNP - 10/10/2019 11:59 AM CST History Alexander Araiza is a 44 year old male who presents to the clinic with Chief Complaint Patient presents with ??? Sore Throat . Primary Care Physician is Steven Rodriguez DO. He reports the following symptoms: sore throat, pain while swallowing and hoarseness. Onset was 3 days ago. The Clinical course has been gradually worsening. Patient is drinking plenty of fluids. Thepain is described as burning, sharp and stabbing, and is 6/10 in intensity. OTC- Chloraseptic throat spray. Sick Contacts: No known sick contacts. Past Medical History: Diagnosis Date ??? NEGATIVE PAST MEDICAL HISTORY - SEE PROBLEM LIST No family history on file. Current Outpatient Medications Medication Sig Dispense Refill ??? rOPINIRole (REQUIP) 0.25 MG tablet Take 0.25 mg by mouth 3 times daily No current facility-administered medications for this visit. No Known Allergies Social History Socioeconomic History ??? Marital status: Spouse name: Not on file ??? Number of children: Not on file ??? Years of education: Not on file ??? Highest education level: Not on file Occupational History ??? Not on file Social Needs ??? Financial resource strain: Not on file ??? Food insecurity: Worry: Not on file Inability: Not on file ??? Transportation needs: Medical: Not on file Non-medical: Not on file Tobacco Use ??? Smoking status: Never Smoker ??? Smokeless tobacco: Never Used Substance and Sexual Activity ??? Alcohol use: Not on file ??? Drug use: Not on file ??? Sexual activity: Not on file Lifestyle ??? Physical activity: Days per week: Not on file Minutes per session: Not on file ??? Stress: Not on file Relationships ??? Social connections: Talks on phone: Not on file Gets together: Not on file Attends amish service: Not on file Active member of club or organization: Not on file Attends meetings of clubs or organizations: Not on file Relationship status: Not on file ??? Intimate partner violence: Fear of current or ex partner: Not on file Emotionally abused: Not on file Physically abused: Not on file Forced sexual activity: Not on file Other Topics Concern ??? Not on file Social History Narrative ??? Not on file Review of Systems Constitutional: Positive for malaise, Negative for fatigue, fevers, chills, sweats. Eyes: Negative Ears, nose, mouth, and throat: Positive for persistent sore throat, hoarseness Respiratory: Negative for acute cough Cardiovascular: Negative Hematologic/lymphatic: Negative for fever Objective: BP 130/82 Pulse 81 Temp 98.2 ??F (36.8 ??C) Resp 16 Ht 1.727 m (5' 8 ) Wt 102.1 kg (225 lb) SpO2 97% BMI 34.21 kg/m2 General appearance: alert, cooperative, no distress, oriented to person, place, and time Head: normocephalic, without trauma Eyes: sclera and conjunctiva clear Ears: canals clear, tympanic membranes normal, hearing intact to voice Nose: nares open; no septal deviation is noted Throat: mild oropharyngeal erythema, no tonsils present, uvula is midline Neck: no adenopathy, supple Nodes: no parotid, cervical, pre-auricular or post-auricular adenopathy Lungs: breath sounds normal and symmetric; no rales or wheezes Heart: regular rhythm, normal S1 and S2, without murmurs, gallops or rubs Assessment: Encounter Diagnosis Name Primary? Acute pharyngitis, unspecified etiology Yes Plan: Throat culture sent to [facility] Educational materials given. Drink plenty of fluids May take Tylenol or Ibuprofen as directed per package instructions Warm salt water gargles Reviewed education materials and instructions with patient and answered all questions. Alexander Araiza verbalized understanding and agrees with plan. Follow up with Steven Rodriguez, DO if symptoms worsen or do not completely resolve. SEEK EMERGENCY CARE IF SEVERE SYMPTOMS PERSIST, SUCH , BUT NOT LIMITED TO: HIGH FEVER, NECK PAIN,SWELLING OF THE NECK, NECK TENDERNESS, DEVELOPMENT OF RASH, DIFFICULTY SWALLOWING, MENTAL STATUS CHANGES, SEVERE HEADACHE, CHANGES IN THE COLOR OF YOUR URINE, DECREASED URINATION, OR INABILITY TO SWALLOW SALIVA (MAY MANIFEST DROOLING IN CHILDREN) Orders Placed This Encounter ??? [facility] Throat Culture ??? STREP A SCREEN Recent Results (from the past 24 hour(s)) STREP A SCREEN Collection Time: 10/10/19 12:00 AM Result Value Ref Range Strep A Rapid POCT Negative Negative Strep A Internal Control Present Lot # [id number] Expiration Date 02/16/2021 VIC Matthew 10/10/2019 12:20 PM E PRODUCT DEMONSTRATOR documented in this encounter Plan of Treatment Not on file documented as of this encounter Procedures Procedure Name Priority Date/Time Associated Diagnosis Comments CULTURE RESPIRATORY UPPER Routine 10/10/2019 12:13 PM STORE PRODUCT DEMONSTRATOR Acute pharyngitis, unspecified etiology STREP A SCREEN - POINT OF CARE (AMB) STL Routine 10/10/2019 Acute pharyngitis, unspecified etiology documented in this encounter Results * [facility] Throat Culture (10/10/2019 12:13 PM STORE PRODUCT DEMONSTRATOR) Upper Respiratory Culture Final report [facility] ACCOUNT BILL Result 1 [facility] ACCOUNT BILL Comment:Routine respiratory shabbir Microbiology ENTIRE THROAT (SURFACE REGION OF NECK) / Unknown 10/10/2019 12:13 PM STORE PRODUCT DEMONSTRATOR 10/10/2019 Narrative Resulting Agency Comment Lab Testing performed at: [facility] [address] ??[facility] [id number] Diana Barragan APRN-STEEL POURER HELPER LAB - HI CROBIOLOGY ORDERABLES [facility] ACCOUNT BILL [address] [place] [address] * STREP A SCREEN (10/10/2019) Strep A Rapid POCT Negative Negative Strep A Internal Control Present Lot # [id number] Expiration Date 02/16/2021 Throat ENTIRE THROAT (SURFACE REGION OF NECK) / Unknown 10/10/2019 Diana THAPASTEEL POURER HELPER LAB - PO INT OF CARE ORDERABLES documented in this encounter Visit Diagnoses Diagnosis Acute pharyngitis, unspecified etiology- Primary documented in this encounter Care Teams Bead Cutter Relationship Specialty Start Date End Date Steven Rodriguez DO [address] [facility] [address] [place] [address] PCP - General Internal Medicine 12/01/16 documented as of this encounter
--- OUTSIDE RECORDS SUMMARY | 2024-12-01 16:10 | XMS_ITS | Encounter Summary ---
Author Organization [facility] Address [address] [place] [address] Care Team Providers Care Postpartum Rn Name Role Phone Steven Rodriguez DO Primary Care Provider [phone] Reason for Visit * Reason Onset Date Comments Results 10/13/2019 Encounter Details Date Type Department Care Team (Late st Contact Info) Description 10/13/2019 Telephone [facility] [email or web address] [facility] [address] [place] [address] Rosie Carlisle APRN-CNP [address] [place] [address] Results Social History Tobacco Use Types Packs/Day Years Used Date Smoking Tobacco: Never Smokeless Tobacco: Never Sex and Gender Information Value Date Recorded Sex Assigned at Not on file Gender Identity Not on file Sexual Orientation Not on file documented as of this encounter Miscellaneous Notes * Telephone Encounter - Rosie Carlisle APRN-CNP - 10/13/2019 6:40 PM CANDY DECORATOR Left message for patient to call clinic back via service center. Y DECORATOR documented in this encounter Plan of Treatment Not on file documented as of this encounter Visit Diagnoses Not on filedocumented in this encounter Care Teams Postpartum Rn Relationship Specialty Start Date End Date Steven Rodriguez DO [address] [facility] [address] [place], [place] [id number] PCP - General Internal Medicine 12/01/16 documented as of this encounter
--- OUTSIDE RECORDS SUMMARY | 2024-12-01 16:10 | XMS_ITS | Encounter Summary ---
Author Organization [facility] Address [address] [place] [address] Care Team Providers Care Science Education Professor Name Role Phone Unavailable Primary Care Provider Unavailabl e Encounter Details Date Type Department Care Team (Latest Contact Info) Description 10/09/2006 Outpatient Historical [facility] [place] [address] [address] Carpal Tunnel Syndrome (Primary Dx) Social History Tobacco Use Types Packs/Day Years Used Date Smoking Tobacco: Never Assessed Sex and Gender Information Value Date Recorded Sex Assigned at Not on file Gender Identity Not on file Sexual Orientation Not on file documented as of this encounter Plan of Treatment Not on file documented as of this encounter Visit Diagnoses Diagnosis Carpal tunnel syndrome- Primary documented in this encounter
--- OUTSIDE RECORDS SUMMARY | 2024-12-01 16:11 | XMS_ITS | Continuity of Care Document ---
Author Organization [facility] Address [address] [place] [address] Phone Care Team Providers Care Glass Science Engineer Name Role Phone Layla, Bandar Unavailable Unavailable Advance Directives Directive Yes / No Effective Date File Name No Information Encounters Encounter Description Practice Location Reason(s) For Visit Diagnoses Date Provider Providers Copied on Encounter [facility], [address], [place], [place], [id number], [place] tel:[phone] [facility] No Information 0 [phone] Do[address] Edward. [address] , [address], [place], [address], [place]. tel:[phone] Family History Family Member Type Diagnosis Age At Onset No Information Payers Payer name Insurance type Covered republican ID Authoriza tion(s) No Information Social History Type Description Quantity Date Captured Comments Sex Male Smoking Status No Information Chief Complaint And Reason For Visit No Information Reason For Referral Reason For Referral No Information History Of Present Illness Encounter Date Complaint History Of Prese nt Illness No Information Functional Status Date Functional Assessmen t No Information Instructions Date Instruction Additional Infor mation No Information Assessments Type Assessment Date No Information Patient Care Teams Name Effective Dates (start - stop) Status Members No Information
== END 2024-11-25 06:41 | disposition home or self-care (01) ==
PROVIDERS: PCP Internal Medicine; Visit Provider Nurse Practitioner
DX: E78.5 Hyperlipidemia, unspecified (principal); E11.9 Type 2 diabetes mellitus without complications
CPT/HCPCS: 36415; 80053; 80061; 83036

== ENCOUNTER 2025-02-20 07:28 | Outpatient (CLI) | payer BC, SELFPAY ==
--- OUTSIDE RECORDS SUMMARY | 2025-02-20 07:33 | XMS_ITS | Encounter Summary ---
Author Organization [facility] Address 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
--- OUTSIDE RECORDS SUMMARY | 2025-02-20 07:33 | XMS_ITS | Clinical Summary ---
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
--- OUTSIDE RECORDS SUMMARY | 2025-02-20 07:33 | XMS_ITS | Clinical Summary ---
Author Organization [facility] Address [address] [place] [address] Care Team Providers Care Supervisor Graphite Name Role Phone Steven Rodriguez DO Primary Care Provider [phone] Source Comments [facility] [employer],non-owned Affiliates and Associated Physician Practices is amultiple site organization consisting of ambulatory clinics and hospital sitesin [place], [place], [place] and [place]. This disclosure is being madepursuant to the Care Everywhere program and may not contain all information available regarding this patient. Last updated 18.[facility] [employer] Allergies No known active allergies Medications * [...] Comments Blood Pressure 130/82 10/10/2019 11:58 AM [employer] Pulse 81 10/10/2019 11:58 AM MANAG[employer]ESSION[employer] Temperature 36.8 C (98.2 F) 10/10/2019 11:58 AM [employer] Respiratory Rate 16 10/10/2019 11:58 AM MANA[employer] Oxygen Saturation 97% 10/10/2019 11:58 AM MANAG[employer] PROFESSION[employer] Inhaled Oxygen Concentration - - Weight 102.1 kg (225 lb) 10/10/2019 11:58 AM MANAGEMENT PROFESSION[employer] Height 172.7 cm (5' 8 ) 10/10/2019 11:58 AM MANAG[employer] Body Mass Index 34.21 10/10/2019 11:58 AM MANAGEMENT PROFESSIONALS Plan of Treatment Health Maintenance Due Date [...] 1996 SCREENING FOR DIABETES 10/10/2019 COVID-19 VACCINE ( - 2023-2 5 season) 2024 INFLUENZA VACCINE (#1) 2024 09/14/2020 DEPRESSION SCREENING 11/19/2024 ZOSTER VACCINE (1 of 2) 2027 HIB VACCINE Aged Out No longer eligi ble based on patient's age to complete this topic HPV VACCINE Aged Out No longer eligi ble based on patient's age to complete this topic MENINGOCOCCAL (Group B) VACC INE SHARED DECISION-MAKING Aged Out No longer eligibl e based on patient's age to complete this topic MENINGOCOCCAL GROUPS A/C/Y/W VACCINE Aged Out No longer eligible b ased on patient's age to complete this topic PNEUMOCOCCAL VACCINE Aged Out No long er eligible based on patient's age to complete this topic Care Teams Supervisor Graphite Relationship Specialty Start Date End Date Steven Rodriguez DO [address] [facility] [address] [place], [place] [id number] PCP - General Internal Medicine 12/01/16
--- OUTSIDE RECORDS SUMMARY | 2025-02-20 07:33 | XMS_ITS | Continuity of Care Document ---
Author Organization [facility] Address [address] [place] [address] Phone Care Team Providers Care Breast Surgeon Name Role Phone Layla, Bandar Unavailable Unavailable Advance Directives Directive Yes / No Effective Date File Name No Information Encounters Encounter Description Practice Location Reason(s) For Visit Diagnoses Date Provider Providers Copied on Encounter [facility], [address], [place], [place], [id number], [place] tel:[phone] [facility] No Information 0 7-200 2 Doisy Edward. [address], [place], [address], [place]. tel:[phone] Family History Family Member Type Diagnosis Age [...]
[2025-02-20 07:57] LABS: Hemoglobin A1C 6.9 % (<5.7)
[2025-02-20 08:03] LABS: Alanine Aminotransferase 47 U/L (6-50); Albumin Level 4.3 g/dL (3.5-5.1); Alkaline Phosphatase 64 U/L (38-126); Anion Gap 8 mmol/L (4-12); Aspartate Amino Transferase 29 U/L (17-59); Bilirubin,Total 0.4 mg/dL (0.2-1.3); Blood Urea Nitrogen 12 mg/dL (9-20); Calcium 9.2 mg/dL (8.4-10.2); Carbon Dioxide 29 mmol/L (22-30); Chloride 103 mmol/L (98-107); Cholesterol 178 mg/dL (0-200); Estimated Glomerular Filt Rate > 60; Glucose 125 mg/dL (65-110); HDL Direct 43 mg/dL; Potassium 4.6 mmol/L (3.4-5.0); Sodium 140 mmol/L (137-145); Triglycerides 84 mg/dL (<150)
[2025-02-20 08:14] LABS: LDL Cholesterol Direct 105 mg/dL
== END 2025-02-20 07:29 | disposition home or self-care (01) ==
LOC: ANHLAB 07:30
PROVIDERS: PCP Nurse Practitioner; Visit Provider Nurse Practitioner
DX: E78.5 Hyperlipidemia, unspecified (principal); E11.9 Type 2 diabetes mellitus without complications
CPT/HCPCS: 36415; 80053; 80061; 83036